=== PATIENT | female | born 1990 | race Caucasian/White ===

== ENCOUNTER 2021-10-20 13:30 | Inpatient (IN) | payer BC, SELFPAY ==
[~2021-10-20] VITALS: Ht 165.1 cm; Wt 108.4 kg
[2021-10-20] MEDS ORDERED: PROMETHAZINE 25 MG/ML VIAL IVP PRN (14:00)
[2021-10-20] MEDS ORDERED: LACTATED RINGERS 500 ML IV SCH (14:00)
[2021-10-20] MEDS ORDERED: NALBUPHINE 10 MG/ML AMP IVP PRN (14:00)
[2021-10-20 14:50] LABS: BASOPHILS % (AUTO) 0.4 % (0.0-2.0); EOSINOPHILS % (AUTO) 0.5 % (0.0-4.0); HEMATOCRIT 27.8 % (36-48); HEMOGLOBIN 9.3 g/dL (12.0-16.0); LYMPHOCYTES # (AUTO) 1.1 K/uL (2.5-16.5); LYMPHOCYTES % (AUTO) 17.8 % (20.5-51.1); MEAN CORPUSCULAR HEMOGLOBIN 27 pg (27-31); MEAN CORPUSCULAR HGB CONC 34 g/dL (33-37); MEAN CORPUSCULAR VOLUME 79.2 fL (80-94); MONOCYTES # (AUTO) 0.4 K/uL (0.8-1.0); MONOCYTES % (AUTO) 6.8 % (1.7-9.3); NEUTROPHILS # (AUTO) 4.8 K/uL (1.8-7.7); NEUTROPHILS % (AUTO) 74.5 % (42.2-75.2); PLATELET COUNT (AUTO) 270 K/uL (140-450); RED BLOOD CELL COUNT(AUTO) 3.51 MIL/uL (4.20-5.40); RED CELL DISTRIBUTION WIDTH 16.1 % (11.6-13.7); WHITE BLOOD COUNT (AUTO) 6.4 K/uL (4.8-10.8)
[2021-10-20 15:03] LABS: APPEARANCE,URINE CLEAR (CLEAR); BILIRUBIN,URINE NEGATIVE (NEGATIVE); BLOOD, URINE NEGATIVE (NEGATIVE); COLOR,URINE YELLOW (YELLOW); LEUKOCYTE ESTERASE ,URINE NEGATIVE (NEGATIVE); NITRITE, URINE NEGATIVE (NEGATIVE); UGLUCOSE NEGATIVE (NEGATIVE)
[2021-10-20] MEDS: LACTATED RINGERS 1,000 ML IV SCH ×2 (15:23→23:47)
[2021-10-20 15:36] VITALS: BP 115/56
[2021-10-20] MEDS ORDERED: MISOPROSTOL 25 MCG TAB VG SCH (16:00)
[2021-10-20 16:25] LABS: ALBUMIN 2.5 g/dL (3.4-5.0); ANION GAP 15.1 (8-16); CARBON DIOXIDE 22.8 mmol/L (21-32); CREATININE 0.5 mg/dL (0.6-1.3); POTASSIUM 3.9 mmol/L (3.5-5.1); TOTAL BILIRUBIN 0.6 mg/dL (0.0-1.0)
[2021-10-20] MEDS ORDERED: OXYTOCIN 20 UNITS in LACTATED RINGERS 1,000 ML IV SCH (22:10)
[2021-10-20] MEDS ORDERED: METHYLERGONOVINE 0.2 MG/ML AMP IM SCH (22:10)
[2021-10-21] MEDS: LACTATED RINGERS 1,000 ML IV SCH ×2 (07:52→10:42)
[2021-10-21] MEDS ORDERED: ROPIVACAINE 0.2%/NS PREMIX 200 ML EPI ONE (09:21)
[2021-10-21] MEDS ORDERED: ROPIVACAINE 0.2%/NS PREMIX 200 ML EPI SCH (09:50)
[2021-10-21] MEDS ORDERED: OXYTOCIN 20 UNITS/LR PREMIX 1,000 ML IV ONE (09:57)
--- NOTE | 2021-10-21 12:41 | NUR ---
PATIENT HAS BEEN SCREENED AND CATEGORIZED LOW NUTRITION RISK. PATIENT WILL BE SEEN WITHIN 7 DAYS OF ADMISSION. 10/25/21 REVIEWED BY RENNY DONOHUE RD Addendum: 10/21/21 at 1316 by Kisha THOMAS PATIENT HAS BEEN SCREENED AND CATEGORIZED LOW NUTRITION RISK. PATIENT WILL BE SEEN WITHIN 7 DAYS OF ADMISSION. 10/27/21-10/22/[address] REVIEW[address] R[address]NY DON[address] RD Addendum: 10/21/21 at [address] 10/27/21*
[2021-10-21] MEDS ORDERED: LIDOCAINE 1% 500 MG/50 ML VIAL ONE (15:23)
[2021-10-21] MEDS ORDERED: METHYLERGONOVINE 0.2 MG TAB PO PRN (16:00)
[2021-10-21] MEDS ORDERED: METHYLERGONOVINE 0.2 MG/ML AMP IM PRN (16:00)
[2021-10-21] MEDS ORDERED: IBUPROFEN 800 MG TAB PO PRN (16:00)
[2021-10-21] MEDS ORDERED: OXYTOCIN 10 UNITS/ML VIAL IM PRN (16:00)
[2021-10-21] MEDS ORDERED: TEMAZEPAM 15 MG CAP PO PRN (16:00)
[2021-10-21] MEDS ORDERED: BENZOCAINE/MENTHOL 20%-0.5% 60 GM CAN TP PRN (16:00)
[2021-10-21] MEDS ORDERED: oxyCODONE/APAP 5/325 MG 1 TAB TAB PO PRN ×2 (16:00)
[2021-10-21] MEDS ORDERED: DOCUSATE SOD/SENNA 50/8.6 MG 1 TAB PO SCH (21:00)
[2021-10-22 06:03] LABS: HEMATOCRIT 26.2 % (36-48); HEMOGLOBIN 8.7 g/dL (12.0-16.0)
== END 2021-10-23 10:05 | disposition home or self-care (01) | DRG 807 ==
LOC: MLD 13:30 → MFCC 10-21 19:15
PROVIDERS: ADMIT Obstetrics & Gynecology; ATTEND Obstetrics & Gynecology
PROC: 3E0P7GC Introduction of Other Therapeutic Substance into Female Reproductive, Via Natural or Artificial Opening (ICD-10-PCS; 2021-10-20)
PROC: 10E0XZZ Delivery of Products of Conception, External Approach (ICD-10-PCS; principal; 2021-10-21)
PROC: 0HQ9XZZ Repair Perineum Skin, External Approach (ICD-10-PCS; 2021-10-21)
PROC: 3E0R3BZ Introduction of Anesthetic Agent into Spinal Canal, Percutaneous Approach (ICD-10-PCS; 2021-10-21)
PROC: 00HU33Z Insertion of Infusion Device into Spinal Canal, Percutaneous Approach (ICD-10-PCS; 2021-10-21)
PROC: 10907ZC Drainage of Amniotic Fluid, Therapeutic from Products of Conception, Via Natural or Artificial Opening (ICD-10-PCS; 2021-10-21)
DX: O48.0 Post-term pregnancy (principal); Z37.0 Single live birth; O99.214 Obesity complicating childbirth; O34.211 Maternal care for low transverse scar from previous cesarean delivery; O70.0 First degree perineal laceration during delivery; Z20.822 Contact with and (suspected) exposure to COVID-19; Z3A.40 40 weeks gestation of pregnancy
CPT/HCPCS: 36415; 51702; 59200; 59409; 76815; 80053; 81003; 85018; 85025; 86592; 86886; 86900; 86901; 90715; J2001; J2210; J2300; J2550; J2590; J2795; J7120; Q0092

== ENCOUNTER 2023-08-23 12:24 | Inpatient (IN) | payer OTHER ==
[~2023-08-23] VITALS: Ht 165.1 cm; Wt 101.6 kg
[2023-08-23] MEDS ORDERED: CARBOPROST 250 MCG/ML AMP IM PRN (12:40)
[2023-08-23] MEDS ORDERED: OXYTOCIN 10 UNITS/ML VIAL IM SCH (12:40)
[2023-08-23] MEDS ORDERED: AMPICILLIN 2,000 MG VIAL ONE (13:43)
[2023-08-23 13:48] LABS: BASOPHILS % (AUTO) 0.4 % (0.0-2.0); EOSINOPHILS % (AUTO) 0.3 % (0.0-4.0); HEMATOCRIT 22.9 % (36-48); HEMOGLOBIN 7.3 g/dL (12.0-16.0); LYMPHOCYTES # (AUTO) 1.4 K/uL (2.5-16.5); LYMPHOCYTES % (AUTO) 16.4 % (20.5-51.1); MEAN CORPUSCULAR HEMOGLOBIN 21 pg (27-31); MEAN CORPUSCULAR HGB CONC 32 g/dL (33-37); MEAN CORPUSCULAR VOLUME 65.4 fL (80-94); MONOCYTES # (AUTO) 0.4 K/uL (0.8-1.0); MONOCYTES % (AUTO) 4.3 % (1.7-9.3); NEUTROPHILS # (AUTO) 6.7 K/uL (1.8-7.7); NEUTROPHILS % (AUTO) 78.6 % (42.2-75.2); PLATELET COUNT (AUTO) 309 K/uL (140-450); RED BLOOD CELL COUNT(AUTO) 3.51 MIL/uL (4.20-5.40); RED CELL DISTRIBUTION WIDTH 22.1 % (11.6-13.7); WHITE BLOOD COUNT (AUTO) 8.5 K/uL (4.8-10.8)
[2023-08-23] MEDS: LACTATED RINGERS 1,000 ML IV SCH (13:51)
[2023-08-23] MEDS: AMPICILLIN 2,000 MG in NACL 0.9% MINI-BAG PLUS 100 ML IV SCH (13:54)
[2023-08-23 13:55] LABS: APPEARANCE,URINE CLEAR (CLEAR); BILIRUBIN,URINE NEGATIVE (NEGATIVE); BLOOD, URINE NEGATIVE (NEGATIVE); COLOR,URINE YELLOW (YELLOW); LEUKOCYTE ESTERASE ,URINE NEGATIVE (NEGATIVE); NITRITE, URINE NEGATIVE (NEGATIVE); PROTEIN,URINE NEGATIVE (NEGATIVE); UGLUCOSE NEGATIVE (NEGATIVE)
[2023-08-23] MEDS: MISOPROSTOL 25 MCG TAB ONE (14:01)
[2023-08-23 14:08] LABS: ALBUMIN 2.4 g/dL (3.4-5.0); ANION GAP 10.7 (8-16); CALCIUM 8.3 mg/dL (8.5-10.1); CARBON DIOXIDE 24.9 mmol/L (21-32); CREATININE 0.6 mg/dL (0.6-1.3); POTASSIUM 3.6 mmol/L (3.5-5.1); TOTAL BILIRUBIN 1.1 mg/dL (0.0-1.0); TOTAL PROTEIN, SERUM 7.1 g/dL (6.4-8.2)
[2023-08-23 14:11] LABS: INR 0.9 (0.8-1.2); PARTIAL THROMBOPLASTIN TIME 23.9 secs (22-35.6); PROTHROMBIN TIME 9.4 secs (10.8-13.4)
[2023-08-23 15:29] VITALS: BP 115/71; PULSE 113; RESP 18; TEMP 99
[2023-08-23] MEDS ORDERED: PREN-543 PO (16:14)
[2023-08-23] MEDS: NACL 0.9% 1,000 ML IV SCH (16:45)
[2023-08-23] MEDS: ACETAMINOPHEN 325 MG TAB PO PRN (17:29)
[2023-08-23] MEDS: MISOPROSTOL 25 MCG TAB VG SCH (17:54)
[2023-08-23] MEDS: AMPICILLIN 1,000 MG in NACL 0.9% MINI-BAG PLUS 50 ML IV SCH (17:54)
[2023-08-23] MEDS: OXYTOCIN 20 UNITS in LACTATED RINGERS 1,000 ML IV SCH (20:50)
[2023-08-23] MEDS: AMPICILLIN 1,000 MG VIAL ONE (21:59)
[2023-08-23] MEDS: ONDANSETRON 4 MG/2 ML VIAL IVP PRN (22:14)
[2023-08-23] MEDS: NALBUPHINE 10 MG/ML AMP IVP PRN (22:14)
[2023-08-24] MEDS ORDERED: AMPICILLIN 1,000 MG VIAL ONE ×3 (01:21→09:53)
[2023-08-24] MEDS: AMPICILLIN 1,000 MG VIAL ONE (06:08)
[2023-08-24] MEDS ORDERED: ROPIVACAINE 0.2%/NS PREMIX 200 ML EPI ONE (08:58)
[2023-08-24 09:43] LABS: BASOPHILS # (AUTO) 0.1 K/uL (0.00-0.22); BASOPHILS % (AUTO) 0.5 % (0.0-2.0); EOSINOPHILS % (AUTO) 0.1 % (0.0-4.0); HEMATOCRIT 28.3 % (36-48); LYMPHOCYTES # (AUTO) 1.9 K/uL (2.5-16.5); LYMPHOCYTES % (AUTO) 16.4 % (20.5-51.1); MEAN CORPUSCULAR HEMOGLOBIN 22 pg (27-31); MEAN CORPUSCULAR HGB CONC 32 g/dL (33-37); MEAN CORPUSCULAR VOLUME 68.7 fL (80-94); MONOCYTES # (AUTO) 0.4 K/uL (0.8-1.0); MONOCYTES % (AUTO) 3.5 % (1.7-9.3); NEUTROPHILS # (AUTO) 9.1 K/uL (1.8-7.7); NEUTROPHILS % (AUTO) 79.5 % (42.2-75.2); PLATELET COUNT (AUTO) 288 K/uL (140-450); RED BLOOD CELL COUNT(AUTO) 4.12 MIL/uL (4.20-5.40); RED CELL DISTRIBUTION WIDTH 25.3 % (11.6-13.7); WHITE BLOOD COUNT (AUTO) 11.4 K/uL (4.8-10.8)
[2023-08-24] MEDS ORDERED: OXYTOCIN 20 UNITS in LACTATED RINGERS 1,000 ML IV SCH (10:00)
[2023-08-24] MEDS: OXYTOCIN 20 UNITS/LR PREMIX 1,000 ML IV ONE (11:15)
[2023-08-24] MEDS: METHYLERGONOVINE 0.2 MG/ML AMP IM PRN (11:46)
[2023-08-24] MEDS ORDERED: METHYLERGONOVINE 0.2 MG/ML AMP IM PRN (11:50)
[2023-08-24] MEDS ORDERED: METHYLERGONOVINE 0.2 MG TAB PO PRN (11:50)
[2023-08-24] MEDS ORDERED: OXYTOCIN 10 UNITS/ML VIAL IM PRN (11:50)
[2023-08-24] MEDS ORDERED: oxyCODONE/APAP 5/325 MG 1 TAB TAB PO PRN ×2 (11:50)
[2023-08-24] MEDS ORDERED: BENZOCAINE/MENTHOL 20%-0.5% 60 GM CAN TP PRN (11:50)
[2023-08-24] MEDS ORDERED: TEMAZEPAM 15 MG CAP PO PRN (11:50)
[2023-08-24 15:07] LABS: HEPATITIS B SURFACE ANTIGEN Negative (Negative)
[2023-08-24] MEDS: DOCUSATE SOD/SENNA 50/8.6 MG 1 TAB PO SCH (21:03)
[2023-08-24] MEDS: IBUPROFEN 800 MG TAB PO PRN (21:05)
[2023-08-25 05:30] LABS: HEMOGLOBIN 7.3 g/dL (12.0-16.0)
[2023-08-26 10:08] LABS: RUBELLA AB IGG <0.90 index (<0.9 - 0.99)
== END 2023-08-25 16:20 | disposition home or self-care (01) | DRG 560 ==
LOC: MLD 12:24 → MFCC 08-24 14:35
PROVIDERS: ADMIT Obstetrics & Gynecology; ATTEND Obstetrics & Gynecology
PROC: 30233N1 Transfusion of Nonautologous Red Blood Cells into Peripheral Vein, Percutaneous Approach (ICD-10-PCS; 2023-08-23)
PROC: 10D07Z6 Extraction of Products of Conception, Vacuum, Via Natural or Artificial Opening (ICD-10-PCS; principal; 2023-08-24)
PROC: 0HQ9XZZ Repair Perineum Skin, External Approach (ICD-10-PCS; 2023-08-24)
PROC: 3E0R3BZ Introduction of Anesthetic Agent into Spinal Canal, Percutaneous Approach (ICD-10-PCS; 2023-08-24)
PROC: 00HU33Z Insertion of Infusion Device into Spinal Canal, Percutaneous Approach (ICD-10-PCS; 2023-08-24)
DX: O48.0 Post-term pregnancy (principal); Z37.0 Single live birth; R71.0 Precipitous drop in hematocrit; O69.81X0 Labor and delivery complicated by cord around neck, without compression, not applicable or unspecified; Z20.822 Contact with and (suspected) exposure to COVID-19; O99.824 Streptococcus B carrier state complicating childbirth; O77.0 Labor and delivery complicated by meconium in amniotic fluid; O70.0 First degree perineal laceration during delivery; Z3A.40 40 weeks gestation of pregnancy
CPT/HCPCS: 36415; 51702; 59200; 76815; 80053; 81003; 85018; 85025; 85610; 85730; 86592; 86762; 86886; 86900; 86901; 86920; 87340; J0290; J2210; J2300; J2405; J2590; J2795; J7120; P9016; Q0092

== ENCOUNTER 2023-10-20 06:00 | Day surgery (SDC) | payer OTHER ==
[~2023-10-20] VITALS: Ht 165.1 cm; Wt 90.7 kg
[~2023-10-20 06:00] MED LIST: PREN-543 PO
[2023-10-20] MEDS ORDERED: ACETAMINOPHEN 100 ML IV PRN (10:40)
[2023-10-20] MEDS ORDERED: LACTATED RINGERS 1,000 ML IV SCH (10:40)
[2023-10-20] MEDS ORDERED: MEPERIDINE 25 MG/ML SYR IVP PRN (10:40)
[2023-10-20] MEDS ORDERED: ONDANSETRON 4 MG/2 ML VIAL IVP PRN (10:40)
[2023-10-20] MEDS ORDERED: MIDAZOLAM 2 MG/2 ML VIAL ONE (10:41)
[2023-10-20] MEDS ORDERED: ROCURONIUM 50 MG/5 ML VIAL IV ONE (10:42)
[2023-10-20] MEDS ORDERED: fentaNYL citrate 0.05 MG/ML VIAL ONE (10:42)
[2023-10-20] MEDS ORDERED: ONDANSETRON 4 MG/2 ML VIAL ONE (10:43)
[2023-10-20] MEDS ORDERED: METOCLOPRAMIDE 10 MG/2 ML INJ VIAL ONE (10:43)
[2023-10-20] MEDS ORDERED: DEXAMETHASONE 4 MG/ML VIAL ONE (10:43)
[2023-10-20] MEDS ORDERED: PROPOFOL 200 MG/20 ML VIAL IV ONE (10:43)
[2023-10-20 10:55] LABS: BASOPHILS # (AUTO) 0.1 K/uL (0.00-0.22); BASOPHILS % (AUTO) 1.1 % (0.0-2.0); EOSINOPHILS # (AUTO) 0.1 K/uL (0-0.4); EOSINOPHILS % (AUTO) 2.1 % (0.0-4.0); HEMOGLOBIN 8.7 g/dL (12.0-16.0); LYMPHOCYTES # (AUTO) 1.7 K/uL (2.5-16.5); LYMPHOCYTES % (AUTO) 25.8 % (20.5-51.1); MEAN CORPUSCULAR HEMOGLOBIN 21 pg (27-31); MEAN CORPUSCULAR HGB CONC 32 g/dL (33-37); MEAN CORPUSCULAR VOLUME 66.7 fL (80-94); MONOCYTES # (AUTO) 0.4 K/uL (0.8-1.0); NEUTROPHILS # (AUTO) 4.2 K/uL (1.8-7.7); PLATELET COUNT (AUTO) 479 K/uL (140-450); RED BLOOD CELL COUNT(AUTO) 4.05 MIL/uL (4.20-5.40); RED CELL DISTRIBUTION WIDTH 20.3 % (11.6-13.7); WHITE BLOOD COUNT (AUTO) 6.5 K/uL (4.8-10.8)
[2023-10-20 11:20] LABS: ALBUMIN 4.1 g/dL (3.4-5.0); ANION GAP 11.2 (8-16); CALCIUM 8.6 mg/dL (8.5-10.1); CARBON DIOXIDE 29.6 mmol/L (21-32); CREATININE 0.6 mg/dL (0.6-1.3); POTASSIUM 3.8 mmol/L (3.5-5.1); TOTAL BILIRUBIN 1.1 mg/dL (0.0-1.0); TOTAL PROTEIN, SERUM 7.7 g/dL (6.4-8.2)
[2023-10-20] MEDS ORDERED: SEVOFLURANE 250 ML BTL INH ONE (12:22)
[2023-10-20] MEDS: BUPIVACAINE-MPF 0.25% 30 ML VIAL INJ ONE (13:00)
[2023-10-20] MEDS: LIDOCAINE/EPI 1% 1:100000 20 ML VIAL INJ ONE (13:00)
[2023-10-20] MEDS: HYDROmorphone 1 MG/ML AMP IVP PRN (13:35)
[2023-10-20] MEDS ORDERED: HYDROmorphone PFS 2 MG/ML SYR ONE (13:37)
== END 2023-10-20 15:10 | disposition home or self-care (01) ==
LOC: MDS 06:00 → MMU 06:00 → UNDOADMOB 09:34 → INTOOBSV 09:34 → EDSTATUS 11:30 → MDS 15:10
PROVIDERS: ATTEND Obstetrics & Gynecology
DX: Z30.2 Encounter for sterilization (principal); Z79.899 Other long term (current) drug therapy
CPT/HCPCS: 36415; 80053; 85025; C1758; J1100; J1170; J2001; J2250; J2405; J2704; J2765; J3010; J3490; J7120